=== PATIENT | male | born 1965 | race Two or more races ===

== ENCOUNTER 2017-05-31 07:45 | Emergency (ER) | payer SELFPAY ==
[~2017-05-31] VITALS: Ht 182.9 cm; Wt 81.6 kg
[2017-05-31] MEDS ORDERED: Norco 10mg/325mg tab ORAL ONE (08:15)
[2017-05-31] MEDS ORDERED: Ketorolac 60mg Inj IM ONE (08:15)
--- NOTE | 2017-05-31 08:18 | Emergency Room Report ---
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 up from that machine he experienced increased pain to the right lower back And as it persisted he was concerning came to the ER Denies any other fall or trauma Denies any focal weakness denies any saddle paresthesia Denies any urinary incontinence Pain is 7/10 localized as above worse with standing or bending Worse with turning to the right Allergies: Coded Allergies: No Known Allergies (Unverified , 05/31/17) Patient History Past Medical History: see triage record Pertinent Family History: none Reviewed Nursing Documentation: PMH: Agreed, PSxH: Agreed Nursing Documentation-PMH Past Medical History: No Stated History Review of Systems All Other Systems: negative except mentioned in HPI Physical Exam Vital Signs Date Time Temp Pulse Resp B/P (MAP) Pulse Ox O2 Delivery O2 Flow Rate FiO2 05/31/17 07:52 97.9 53 18 144/75 98 Room Air Sp02 EP Interpretation: reviewed, normal General Appearance: well appearing, no apparent distress Head: normocephalic, atraumatic Eyes: bilateral eye PERRL, bilateral eye EOMI ENT: normal pharynx, no angioedema Neck: full range of motion, supple Respiratory: lungs clear Cardiovascular #1: regular rate, rhythm, no edema Gastrointestinal: non tender, soft Musculoskeletal: other - Tender on palpation of the right posterior superior iliac crest region, some to return to leg raise on the right side, sidebending to the right at approximately 30 also causes increased discomfort in that region Neurologic: alert, oriented x3, responsive, 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 spine # of Views/Limited Vs Complete: 3 View Indication: Pain EP Interpretation: Yes Interpretation: no dislocation, no soft tissue swelling, no fractures Impression: No acute disease Electronically Signed by: Jewels Addison DO Last Vital Signs Date Time Temp Pulse Resp B/P (MAP) Pulse Ox O2 Delivery O2 Flow Rate FiO2 05/31/17 07:52 97.9 53 18 144/75 98 Room Air Status: improved Disposition: HOME, SELF-CARE Condition: Improved Scripts Methocarbamol* (ROBAXIN-750*) 750 Mg Tablet 750 MG PO TID, #21 TAB 0 Refills Prov: JEWELS ADDISON D.O. 05/31/17 Ibuprofen* (MOTRIN*) 600 Mg Tablet 600 MG ORAL Q8H Y for For Pain, #20 TAB 0 Refills Prov: JEWELS ADDISON D.O. 05/31/17 Additional Instructions: Patient is provided with the discharge instructions notified to follow up with primary doctor in the next 2-3 days otherwise return to the er with any worsening symptoms. Please note that this report is being documented using [employer] technology. This can lead to erroneous entry secondary to incorrect interpretation by the dictating instrument. JEWELS ADDISON D.O. May 31, 2017 08:17
[2017-05-31] MEDS ORDERED: ROBAXIN-750750 MG PO (09:34)
[2017-05-31] MEDS ORDERED: IBUPROFEN600 MG ORAL (09:34)
[2017-05-31 09:50] VITALS: BP_SYST 141; BP_DIAS 77; BP_DIAS 82
--- NOTE | 2017-05-31 11:52 | Diagnostic Imaging Report ---
Indication: Back pain Technique: 3 views of the lumbosacral spine. Comparison: None Findings: 7 demonstrates minimal anterior spur formation. Alignment is intact. No fracture. No evidence of bone destruction. There is lumbarization of S1. Impression: Lumbarization of S1. Minimal degenerative change.
== END 2017-05-31 09:53 | disposition home or self-care (01) ==
LOC: EMR 08:35
DX: M54.5 Low back pain (principal)
CPT/HCPCS: 72020; 96372; 99284